=== PATIENT | male | born 1995 | race Caucasian/White ===

== ENCOUNTER 2024-04-30 13:55 | Inpatient (IN) | payer OTHER ==
--- NOTE | 2024-04-30 15:16 | US ---
EXAMINATION TYPE: US scrotum with doppler. DATE OF EXAM: 04/30/2024 COMPARISON: NONE CLINICAL INDICATION: Male, 29 years old with history of s/o right testicular/pelvic pain; right testi gillian pain today, no injury TECHNIQUE: Grayscale, color Doppler and spectral Doppler imaging of the scrotum. FINDINGS: EXAM MEASUREMENTS: TESTICLES: Right Testicle: 4.4 x 2.8 x 2.45 cm Left Testicle: 4.4 x 2.8 x 2.3 cm EPIDIDYMIS HEAD: Right Epididymis: 0.8 cm Left Epididymis: 1.4 cm - 0.9 x 0.6 x 0.5cm cyst Doppler performed to assess for testicular vascularity; good bilateral color flow and spectral wavefo emiliana are seen. There is no evidence of testicular torsion. Presence of hydroceles: no Presence of varicoceles: no IMPRESSION: 1. Appropriate arterial venous waveforms to the testes. 2. No evidence for intratesticular mass. [facility], , 04/30/2024 3:14 PM
[2024-04-30 15:23] LABS: Appearance,Urine Clear (Clear); Bilirubin,Urine Negative (Negative); Blood,Urine Negative (Negative); Color,Urine Yellow; Glucose,Urine (UA) Negative (Negative); Ketones,Urine Negative (Negative); Leukocyte Esterase,Urine Negative (Negative); Nitrite,Urine Negative (Negative); Protein,Urine Trace (Negative); Specific Gravity,Urine 1.031 (1.001-1.035); Urobilinogen,Urine <2.0 mg/dL (<2.0)
[2024-04-30] MEDS: KETOROLAC 15 MG/ML 1 ML VIAL IM STA (15:52)
[2024-04-30] MEDS: HYDROmorphone 0.5 MG/0.5 ML SYRINGE IM STA (15:53)
[2024-04-30] MEDS: HYDROmorphone 0.5 MG/0.5 ML SYRINGE IVP STA ×2 (16:05→18:34)
[2024-04-30] MEDS: KETOROLAC 15 MG/ML 1 ML VIAL IVP STA ×2 (16:05→18:34)
[2024-04-30 16:20] LABS: Basophils # (A) 0.1 k/uL (0-0.2); Basophils % (A) 1 %; Eosinophils # (A) 0.2 k/uL (0-0.7); Eosinophils % (A) 1 %; HGB 15.8 gm/dL (13.0-17.5); Lymphocytes # (A) 4.5 k/uL (1.0-4.8); Lymphocytes % (A) 23 %; MCH 31.3 pg (25.0-35.0); MCHC 32.9 g/dL (31.0-37.0); Mean Platelet Volume 7.7; Monocytes # (A) 1.5 k/uL (0-1.0); Monocytes % (A) 8 %; Neutrophils # (A) 12.5 k/uL (1.3-7.7); Neutrophils % (A) 66 %; Platelet Count 340 k/uL (150-450); RBC 5.05 m/uL (4.30-5.90); RDW 13.5 % (11.5-15.5); WBC 19.1 k/uL (3.8-10.6)
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
[2024-04-30 16:30] LABS: ALT 56 U/L (4-49); AST 44 U/L (17-59); African American GFR (CKD) >90 (>60 ml/min/1.73 sqM); Albumin 4.6 g/dL (3.5-5.0); Alkaline Phosphatase 85 U/L (38-126); Anion Gap 8 mmol/L; Blood Urea Nitrogen 22 mg/dL (9-20); Calcium 9.6 mg/dL (8.4-10.2); Carbon Dioxide 26 mmol/L (22-30); Chloride 105 mmol/L (98-107); Glucose 88 mg/dL (74-99); Non-African American GFR(CKD) >90 (>60 ml/min/1.73 sqM); Potassium 4.5 mmol/L (3.5-5.1); Sodium 139 mmol/L (137-145); Total Bilirubin 0.6 mg/dL (0.2-1.3); Total Protein 7.7 g/dL (6.3-8.2)
[2024-04-30] MEDS: SODIUM CHLORIDE 0.9% 1,000 ML IV STA (18:25)
[2024-04-30 18:42] LABS: Amylase 53 U/L (30-110); Lipase 91 U/L (23-300)
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
[2024-04-30] MEDS ORDERED: AZITHROMYCIN 1,000 MG in SODIUM CHLORIDE 0.9% 250 ML IVPB STA (19:55)
--- NOTE | 2024-04-30 20:13 | XR ---
EXAMINATION TYPE: XR Hip Complete RT DATE OF EXAM: 04/30/2024 8:05 PM CLINICAL INDICATION:Male, 29 years old with history of hip and groin pain; H COMPARISON: CT abdomen/pelvis from the same day. TECHNIQUE: XR Hip Complete RT; hip was examined in the frontal and lateral projections and a AP pelvi s. FINDINGS: No evidence for acute process, joint dislocation or significant soft tissue swelling. Contr ast is noted incidentally within the urinary bladder. IMPRESSION: No acute process. [facility], , 04/30/2024 8:11 PM
[2024-04-30] MEDS ORDERED: ONDANSETRON 4 MG/2 ML VIAL IVP PRN (20:20)
[2024-04-30] MEDS ORDERED: NALOXONE 0.4 MG/ML 1 ML VIAL IV PRN (20:20)
[2024-04-30] MEDS: SODIUM CHLORIDE 0.9% 1,000 ML IV SCH (20:56)
[2024-04-30] MEDS: HYDROmorphone 1 MG/ML 1 ML SYRINGE IVP STA (20:57)
[2024-04-30] MEDS: cefTRIAXone IN SWFI 1,000 MG/10 ML SYRINGE IVP STA (20:58)
[2024-04-30] MEDS: AZITHROMYCIN 500 MG TAB PO ONE (20:59)
[2024-04-30] MEDS: CEFEPIME 1 GM in SODIUM CHLORIDE 0.9% 50 ML IVPB SCH (20:59)
[2024-05-01] MEDS: HYDROmorphone 1 MG/ML 1 ML SYRINGE IVP PRN (02:02)
[2024-05-01] MEDS: TEMAZEPAM 15 MG CAP PO PRN (03:48)
[2024-05-01] MEDS: ACETAMINOPHEN TAB 325 MG TAB PO PRN (03:48)
[2024-05-01] MEDS: LORazepam 0.5 MG TAB PO PRN (03:48)
[2024-05-01] MEDS: PANTOPRAZOLE 40 MG/10 ML VIAL IV SCH (10:21)
[2024-05-01] MEDS: DOXYCYCLINE 100 MG CAP PO SCH (14:58)
[2024-05-01] MEDS: MORPHINE SULFATE 4 MG/ML SYRINGE IVP PRN (16:28)
[2024-05-01] MEDS: NICOTINE 14MG/24HR PATCH TRANSDERM SCH (17:36)
[2024-05-01 20:57] LABS: Amphetamine Screen,Urine Not Detected (NotDetected); Barbiturate Screen,Urine Not Detected (NotDetected); Benzodiazepines Screen,Urine Detected (NotDetected); Cocaine Screen,Urine Detected (NotDetected); Methadone Screen, Urine Not Detected (NotDetected); Opiate Screen,Urine Detected (NotDetected); Oxycodone Screen, Urine Not Detected (NotDetected); Phencyclidine Screen,Urine Not Detected (NotDetected); Tricyclic Antidepressant,Urine Not Detected (NotDetected); Urn Cannabinoid Scrn Detected (NotDetected)
[2024-05-01 21:08] LABS: HSV I IgG Interp Negative (Negative); HSV II IgG Interp Positive (Negative)
[2024-05-01 21:34] LABS: HIV 2 AB Non-Reactive (Non-Reactive); HIV AB P24 Non-Reactive (Non-Reactive); HIV P24 AG Non-Reactive (Non-Reactive)
[2024-05-01] MEDS: oxyCODONE-APAP 5-325MG 1 EACH TAB PO PRN (23:12)
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
[2024-05-02 04:21] LABS: Basophils # (A) 0.1 k/uL (0-0.2); Basophils % (A) 1 %; Eosinophils # (A) 0.2 k/uL (0-0.7); Eosinophils % (A) 2 %; HCT 48.7 % (39.0-53.0); HGB 15.5 gm/dL (13.0-17.5); Hypochromasia Slight; Lymphocytes # (A) 4.5 k/uL (1.0-4.8); Lymphocytes % (A) 31 %; MCHC 31.8 g/dL (31.0-37.0); MCV 97.6 fL (80.0-100.0); Mean Platelet Volume 7.4; Monocytes # (A) 1.6 k/uL (0-1.0); Monocytes % (A) 11 %; Neutrophils # (A) 7.5 k/uL (1.3-7.7); Neutrophils % (A) 52 %; Platelet Count 375 k/uL (150-450); RBC 4.99 m/uL (4.30-5.90); RDW 13.1 % (11.5-15.5); WBC 14.3 k/uL (3.8-10.6)
[2024-05-02] MEDS ORDERED: NICOTINE 14MG/24HR PATCH TRANSDERM SCH (09:00)
[2024-05-02 09:33] LABS: BUN/Creat Ratio 18.12 Ratio (12.00-20.00); Blood Urea Nitrogen 14.5 mg/dL (9.0-27.0); Glucose 109 mg/dL (70-110)
[2024-05-02 09:34] LABS: ALT 50 U/L (10-49); AST 40 U/L (14-35); Albumin/Globulin Ratio 1.38 Ratio (1.60-3.17); Alkaline Phosphatase 74 U/L (41-126); Calcium 9.4 mg/dL (8.7-10.3); Carbon Dioxide 23.7 mmol/L (21.6-31.8); Chloride 106 mmol/L (96-109); Globulin 2.9 g/dL (1.6-3.3); Potassium 4.1 mmol/L (3.5-5.5); Sodium 139 mmol/L (135-145); Total Bilirubin 0.2 mg/dL (0.3-1.2); Total Protein 6.9 g/dL (6.2-8.2)
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
[2024-05-02] MEDS: valACYclovir HCL 1,000 MG TABLET PO SCH (14:02)
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
[2024-05-02] MEDS: LORazepam 2 MG/ML INJ IV PRN (22:41)
[2024-05-03 08:13] VITALS: BP 122/72; PULSE 90; RESP 17; TEMP 97.7
[2024-05-03 12:26] LABS: C. trachomatis,PCR Negative (Negative); N. gonorrhoeae,PCR Negative (Negative)
--- NOTE | 2024-05-03 13:34 | P.PN ---
Subjective Progress Note Date: 05/02/24 Principal diagnosis: Reason for follow-up is right groin pain and leukocytosis Patient is a 29-year-old male with no reported past medical history, patient did have last unprotected sexual encounter around Thanksgiving presenting to the hospital for evaluation of right groin pelvic pain that has been getting worse over the last 3 days, patient did have ultrasound of the scrotal area denies any abnormality CT abdominal pelvis did not show any acute abnormality except concerning for possible enlarged lymph node in the right groin. On today's evaluation that is 05/02/2024,the patient has been sleeping comfortably with the TV on on waking up the patient is started complaining of excruciating pain to the right groin but mentions slightly better than yesterday urinary symptoms seem to have improved no nausea no vomiting or diarrhea. Patient white count is down to 14.3 creatinine 0.8 HIV testing came back negative HSV-2 IgG positive, patient did have a CT of the hip that was negative for acute process Objective - Vital Signs Vital signs: Vital Signs Temp 97.4 F L 05/02/24 13:52 Pulse 68 05/02/24 13:52 Resp 16 05/02/24 13:52 BP 111/67 05/02/24 13:52 Pulse Ox 98 05/02/24 13:52 FiO2 Intake & Output 05/01/24 05/02/24 05/02/24 18:59 06:59 18:59 Weight 95.254 kg Other: # Voids 1 3 - Exam GENERAL DESCRIPTION: Middle-age male lying in bed in no distress RESPIRATORY SYSTEM: Unlabored breathing , decreased breath sounds at bases HEART: S1 S2 regular rate and rhythm , ABDOMEN: Soft , no tenderness - Labs CBC & Chem 7: 05/02/24 04:01 05/02/24 04:01 Labs: Abnormal Lab Results - Last 24 Hours (Table) 05/01/24 05/01/24 05/02/24 Range/Units 13:28 19:45 04:01 WBC 14.3 H (3.8-10.6) k/uL Monocytes # 1.6 H (0-1.0) k/uL Total Bilirubin (0.3-1.2) mg/dL AST (14-35) U/L ALT (10-49) U/L Albumin/Globulin Ratio (1.60-3.17) Ratio Urine Opiates Screen Detected H (NotDetected) U Benzodiazepines Scrn Detected H (NotDetected) Urine Cocaine Screen Detected H (NotDetected) U Marijuana (THC) Screen Detected H (NotDetected) HSV II IgG Interpret Positive A (Negative) 05/02/24 Range/Units 04:01 WBC (3.8-10.6) k/uL Monocytes # (0-1.0) k/uL Total Bilirubin 0.2 L (0.3-1.2) mg/dL AST 40 H (14-35) U/L ALT 50 H (10-49) U/L Albumin/Globulin Ratio 1.38 L (1.60-3.17) Ratio Urine Opiates Screen (NotDetected) U Benzodiazepines Scrn (NotDetected) Urine Cocaine Screen (NotDetected) U Marijuana (THC) Screen (NotDetected) HSV II IgG Interpret (Negative) Assessment and Plan (1) Leukocytosis Status: Acute Code(s): D72.829 - ELEVATED WHITE BLOOD CELL COUNT, UNSPECIFIED SNOMED Code(s): 554737106 (2) Groin pain Status: Acute Code(s): R10.30 - LOWER ABDOMINAL PAIN, UNSPECIFIED SNOMED Code(s): 578860074 Plan: 1patient presented to hospital with excruciating pain to the right groin area and this patient CT did shows evidence of lymphadenopathy to the right groin but did not show any other abnormality [facility] and noticed to have scabs on the penile shaft concerning for STDs such as lymphogranuloma inguinale. 2we currently waiting for gonorrhea chlamydia DNA probe, HIV testing came back negative HSV-2 serology positive 3patient to continue with Rocephin 2 g daily as well as doxycycline 100 mg twice a day while waiting for the workup to be completed Dictation was produced using [employer] dictation software. please excuse any grammatical, word or spelling errors. Time with Patient: Less than 30
--- NOTE | 2024-05-03 13:35 | P.PN ---
Subjective Progress Note Date: 05/03/24 Principal diagnosis: Reason for follow-up is right groin pain and leukocytosis Patient is a 29-year-old male with no reported past medical history, patient did have last unprotected sexual encounter around Thanksgiving presenting to the hospital for evaluation of right groin pelvic pain that has been getting worse over the last 3 days, patient did have ultrasound of the scrotal area denies any abnormality CT abdominal pelvis did not show any acute abnormality except concerning for possible enlarged lymph node in the right groin. On today's evaluation that is 05/03/2024,the patient remains to be afebrile, patient is on room air not requiring supplemental oxygen patient has been sleeping comfortably however on waking up started complaining of pain to the right groin area and 1 more pain medication patient mention urinary burning frequency has improved and no diarrhea. No new lab has been obtained today Objective - Vital Signs Vital signs: Vital Signs Temp 97.7 F 05/03/24 08:00 Pulse 90 05/03/24 08:00 Resp 17 05/03/24 08:00 BP 122/72 05/03/24 08:00 Pulse Ox 98 05/03/24 08:00 FiO2 Intake & Output 05/02/24 05/03/24 05/03/24 18:59 06:59 18:59 Intake Total 1130 590 Balance 1130 590 Intake: Intake, IV Titration 50 Amount cefTRIAXone 2 gm In 50 Sodium Chloride 0.9% 50 ml @ 100 mls/hr IVPB Q24HR [facility] Rx#:[id number] Oral 1080 590 Other: # Voids 2 2 - Exam GENERAL DESCRIPTION: Middle-age male lying in bed in no distress RESPIRATORY SYSTEM: Unlabored breathing , decreased breath sounds at bases HEART: S1 S2 regular rate and rhythm , ABDOMEN: Soft , patient refused examination of the right groin and genital area at this point - Labs CBC & Chem 7: 05/02/24 04:01 05/02/24 04:01 Labs: Abnormal Lab Results - Last 24 Hours (Table) 05/02/24 Range/Units 04:01 ESR 17 H (0-15) mm/Hr Assessment and Plan (1) Leukocytosis Status: Acute Code(s): D72.829 - ELEVATED WHITE BLOOD CELL COUNT, UNSPECIFIED SNOMED Code(s): 858867329 (2) Groin pain Status: Acute Code(s): R10.30 - LOWER ABDOMINAL PAIN, UNSPECIFIED SNOMED Code(s): 100480942 Plan: 1patient presented to hospital with excruciating pain to the right groin area and this patient CT did shows evidence of lymphadenopathy to the right groin but did not show any other abnormality patient did have unprotected sex around Thanksgiving and noticed to have scabs on the penile shaft concerning for STDs such as lymphogranuloma inguinale. 2we currently waiting for gonorrhea chlamydia DNA probe, HIV testing came back negative HSV-2 serology positive 3patient white count did improve yesterday down to 14.910 no CBC was done today, to continue with Rocephin 2 g daily as well as doxycycline 100 mg twice a day while waiting for the workup to be completed Dictation was produced using [employer] dictation software. please excuse any grammatical, word or spelling errors. Time with Patient: Less than 30
[2024-05-03 16:01] LABS: HCT 48.4 % (39.6-50.0); HGB 15.8 g/dL (13.0-17.0); MCH 30.9 pg (27.0-32.0); MCHC 32.6 g/dL (32.0-37.0); MCV 94.7 FL (80.0-97.0); NRBC Per 100 WBC 0 X 10*3/uL (0.00-0.01); Platelet Count 430 X 10*3/uL (140-440); RBC 5.11 X 10*6/uL (4.40-5.60); RDW 13.7 % (11.5-14.5); WBC 13.25 X 10*3/uL (4.50-10.00)
[2024-05-03 16:27] LABS: Basophils % (A) 0.8 %; Eosinophils # (A) 0.23 X 10*3/uL (0.04-0.35); Eosinophils % (A) 1.7 %; Lymphocytes # (A) 3.79 X 10*3/uL (0.90-5.00); Lymphocytes % (A) 28.6 %; Monocytes # (A) 2.05 X 10*3/uL (0.20-1.00); Monocytes % (A) 15.5 %; Neutrophils # (A) 7.05 X 10*3/uL (1.80-7.70); Neutrophils % (A) 53.2 %; RBC Morphology Normal (Normal)
[2024-05-03 18:11] LABS: ALT 76 U/L (10-49); AST 53 U/L (14-35); Albumin 4.1 g/dL (3.8-4.9); Albumin/Globulin Ratio 1.24 Ratio (1.60-3.17); Alkaline Phosphatase 83 U/L (41-126); BUN/Creat Ratio 27.12 Ratio (12.00-20.00); Blood Urea Nitrogen 21.7 mg/dL (9.0-27.0); Calcium 9.5 mg/dL (8.7-10.3); Carbon Dioxide 22.8 mmol/L (21.6-31.8); Chloride 103 mmol/L (96-109); Globulin 3.3 g/dL (1.6-3.3); Glucose 110 mg/dL (70-110); Potassium 4.8 mmol/L (3.5-5.5); Sodium 137 mmol/L (135-145); Total Bilirubin <0.2 mg/dL (0.3-1.2); Total Protein 7.4 g/dL (6.2-8.2)
--- NOTE | 2024-05-03 23:55 | DS ---
DISCHARGE SUMMARY FINAL DIAGNOSES: 1. Severe right testicular pain, possible epididymo-orchitis. 2. Possible genital herpes simplex. 3. Splenectomy, status post. 4. Elevated WBC. 5. Urine drug screen positive for cocaine. DISCHARGE DISPOSITION: The patient left the hospital against medical advice. HISTORY OF PRESENT ILLNESS: This is a 29-year-old gentleman with a past medical history, admitted with multiple complex medical issues as mentioned above. The patient was treated with pain management as well as empiric antibiotics. Infectious Disease following the patient closely, but however the patient left the hospital against medical advice. Prognosis remains extremely guarded. MMODL / IJN: [id number] /
--- NOTE | 2024-05-04 03:25 | PN ---
PROGRESS NOTE DATE OF SERVICE: 05/03/2024 SUBJECTIVE: This is a 29-year-old gentleman who was admitted with severe testicular pain, is being closely monitored. The patient also had splenectomy, is on empiric antibiotics. OBJECTIVE: VITAL SIGNS: Stable. CARDIOVASCULAR: S1, S2. ABDOMEN: Soft. NERVOUS SYSTEM: No focal deficit. EXTREMITIES: Some tenderness present. LABORATORY DATA: Noted. ASSESSMENT: 1. Right testicular pain, possible epididymo-orchitis, possible genital herpes. 2. Splenectomy, status post. 3. Elevated WBC. 4. Drug screen positive for cocaine. RECOMMENDATIONS: Recommend to continue current medications. Continue pain management. Otherwise, follow closely with Infectious Disease. Prognosis guarded. Further recommendations to follow. MMODL / IJN: [id number] /
[2024-05-04] MEDS ORDERED: PANTOPRAZOLE 40 MG TABLET PO SCH (07:30)
== END 2024-05-03 12:00 | disposition left against medical advice (07) | DRG 728 ==
LOC: EC 13:55 → 5NMEDONC 20:21
PROVIDERS: ADMIT Hospitalist; ATTEND Hospitalist
DX: N45.3 Epididymo-orchitis (principal); Z90.81 Acquired absence of spleen; F17.290 Nicotine dependence, other tobacco product, uncomplicated; B00.9 Herpesviral infection, unspecified
CPT/HCPCS: 36415; 73502; 74177; 76870; 80053; 80306; 81003; 82150; 83605; 83690; 85025; 85652; 86140; 86695; 86696; 87390; 87491; 87591; 93975; 96361; 96365; 96366; 96367; 96372; 96375; 96376; 99285